=== PATIENT | female | born 1975 ===

== ENCOUNTER 2020-07-29 17:58 | Emergency (ER) ==
[~2020-07-29] VITALS: Ht 162.6 cm; Wt 63.5 kg
[2020-07-29] MEDS ORDERED: LIDOCAINE HCL 1% LOCAL INJ 20 ML VIAL INJ ONE (18:30)
[2020-07-29] MEDS ORDERED: TETANUS/DIPHTHERIA TOX ADULT 0.5 ML SYR IM ONE (18:30)
--- NOTE | 2020-07-29 19:15 | Diagnostic Imaging Report ---
HAND 3+ VIEWS RIGHT - 3 views HISTORY: Pain COMPARISON: None available. FINDINGS: Bones: No acute displaced fracture. Osseous alignment is within normal limits. Joints: The joint spaces are well-maintained. Soft tissues: The soft tissues appear unremarkable. IMPRESSION: No acute radiographic abnormality. No radiopaque foreign body. Signed by: Dr. Jose Varela MD on 07/29/2020 7:12 PM
[2020-07-29] MEDS ORDERED: BACITRACIN ZINC 0.9GM TP ONE (21:01)
--- NOTE | 2020-07-29 21:02 | Emergency Department Note ---
History of Present Illnes History of Present Illness Chief Complaint: Laceration History of Present Illness This is a 45 year old female in from home with complaints of laceration to her right hand that happened when she was washing dishes and the glass she was washing broke and cut her hand. Patient with a partial avulsion injury over her 5th digit knuckle with a flap of skin down the middle. Wound does not appear to be of significant depth but is a approx. 1.25cm insult. . Historian: Patient Arrival Mode: Car Onset (how long ago): hour(s) (1) Location: RIGHT HAND Quality: LACERATION Radiation: Reports non-radiation Severity: mild Onset quality: sudden Duration (how long): hour(s) (1) Timing of current episode: constant Progression: unchanged Chronicity: new Context: Reports trauma/injury ( ABOVE) Relieving factors: none Exacerbating factors: none Associated symptoms: Reports denies other symptoms Past Medical/Family History Physician Review I have reviewed the patient's past medical and family history. Any updates have been documented here. Past Medical History Recent Fever: No Clinical Suspicion of Infectio: No New/Unexplained Change in Ment: No Past Medical History: None Past Surgical History: T&A Social History Smoking Cessation: Never Smoker Alcohol Use: None Any Illegal Drug Use: No Other Any Pre-Existing Lines (PICC,: No Review of Systems Review of Systems Constitutional: Reports no symptoms EENTM: Reports no symptoms Cardiovascular: Reports no symptoms Respiratory: Reports no symptoms Gastrointestinal: Reports no symptoms Genitourinary: Reports no symptoms Musculoskeletal: Reports no symptoms Integumentary: Reports as per HPI Neurological: Reports no symptoms Psychological: Reports no symptoms Endocrine: Reports no symptoms Hematological/Lymphatic: Reports no symptoms Physical Exam Related Data Allergies: Coded Allergies: cortisone (Verified Allergy, Intermediate, muscle dystrophy, 07/29/20) Triage Vital Signs Vital Signs Date Time Temp Pulse Resp B/P (MAP) Pulse Ox O2 Delivery O2 Flow Rate FiO2 07/29/20 18:11 98.1 86 17 154/94 100 Room Air Vital signs reviewed: Yes Physical Exam CONSTITUTIONAL Constitutional: Present well-developed, Present well-nourished HENT HENT: Present normocephalic, Present atraumatic, Present oropharynx clear/moist, Present nose normal HENT L/R: Present left ext ear normal, Present right ext ear normal EYES Eyes: Reports PERRL, Reports conjunctivae normal NECK Neck: Present ROM normal PULMONARY Pulmonary: Present effort normal, Present breath sounds normal CARDIOVASCULAR Cardiovascular: Present regular rhythm, Present heart sounds normal, Present capillary refill normal, Present normal rate GASTROINTESTINAL Abdominal: Present soft, Present nontender, Present bowel sounds normal GENITOURINARY Genitourinary: Present exam deferred SKIN Skin: Present other (1.25 CM LACERATION RIGHT HAND, DORSAL ASPECT OVER 5TH KNUCKLE) MUSCULOSKELETAL Musculoskeletal: Present ROM normal NEUROLOGICAL Neurological: Present alert, Present oriented x 3, Present no gross motor or sensory deficits PSYCHOLOGICAL Psychological: Present mood/affect normal, Present judgement normal Results Imaging Imaging results reviewed: Yes Impressions Procedure: [id number] DX/HAND 3+ VIEWS RIGHT Exam Date: 07/29/20 Exam Time: 1837 REPORT STATUS: Signed HAND 3+ VIEWS RIGHT - 3 views HISTORY: Pain COMPARISON: None available. FINDINGS: Bones: No acute displaced fracture. Osseous alignment is within normal limits. Joints: The joint spaces are well-maintained. Soft tissues: The soft tissues appear unremarkable. IMPRESSION: No acute radiographic abnormality. No radiopaque foreign body. Signed by: Dr. Jose Varela MD on 07/29/2020 7:12 PM Dictated By: JOSE VARELA MD 11 Transcribed By: ANNY on 07/29/201911 COPY TO: SERGIO HOBSON MD~ Procedures Laceration Laceration: Laceration 1 Site: hand Side: right Size (cm): 1.25 Description: flap Depth: simple, single layer Local anesthesia: lidocaine 1% Amount of anesthesia (mL): 3 Pre-repair: wound exposed, irrigated extensively, deep structures intact, wound margins revised Skin layer closed with: other (PROLENE) Size (cm): 4-0 Number of sutures: 4 Technique: simple, interrupted Assessment & Plan Medical Decision Making MDM PT WITH LACERATION RIGHT HAND XRAY ORDERED TO EVAL FOR FOREIGN BODY LACERATION REPAIRED TET SHOT ORDERED Assessment & Plan Final Impression: (1) Laceration of right hand Last Vital Signs Date Time Temp Pulse Resp B/P (MAP) Pulse Ox O2 Delivery O2 Flow Rate FiO2 07/29/20 18:11 98.1 86 17 154/94 100 Room Air Medications in the ED Lidocaine HCl ONCE ONCE INJ ; Start 07/29/20 at 18:30; Stop 07/29/20 at 18:31; Status DC Tetanus/ Diphtheria Toxoids 0.5 ml ONCE ONCE IM Last administered on at 20:21; Admin Dose 0.5 ML; Start 07/29/20 at 18:30; Stop 07/29/20 at 18:31; Status DC SERGIO HOBSON MD Jul 29, 2020 21:02
== END 2020-07-29 21:05 | disposition home or self-care (01) ==
LOC: ER 18:34
DX: S61.216A Laceration without foreign body of right little finger without damage to nail, initial encounter (principal)
CPT/HCPCS: 12001; 73130; 90471; 90714; 99283; J2001